=== PATIENT | male | born 1955 ===

== ENCOUNTER 2023-09-05 15:04 | Inpatient (IN) | payer OTHER, SELFPAY ==
[2023-09-05 14:43] VITALS: BP 164/83; PULSE 94; RESP 18; TEMP 37.7; O2SAT 96
[2023-09-05 14:44] VITALS: BP 164/83; PULSE 94; RESP 18; TEMP 37.7; O2SAT 96
--- NOTE | 2023-09-05 15:55 | HPE_ITS ---
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): Status: Acute (6) Weakness of right upper extremity: Status: Acute Assessment and plan: call moreno placed on LS of bed recommend handle for cup switched for LS use recommend BS table to L side of bed (7) Dysphagia: Status: Acute Assessment and plan: regular diet orders placed, preferring soft foods but will request based on p reference PO intake has been extremely low, per hospice records (8) Constipation: Status: Acute Assessment and plan: last BM 4 days ago PRN bowel meds ordered, no pain/discomfort today on exam (9) Generalized weakness: Status: Acute Assessment and plan: bedbound, transfers w/assist (10) Fecal incontinence: Status: Acute Assessment and plan: bedside commode in room (11) Urinary incontinence: Status: Acute Assessment and plan: urinal PRN avoid catheter as able, Jared did agree to one if he needs (12) Sacral decubitus ulcer: Status: Acute Assessment and plan: continue would care w/mepilex dressing changes; last changed 09/05/23 (13) Non-healing non-surgical wound: Status: Acute Assessment and plan: continue would care w/mepilex dressing changes; last changed 09/05/23 (14) Recurrent strokes: Status: Acute (15) Agitation: Status: Acute Assessment and plan: started on risperidone 0.5mg BID two days ago, w/orders for increase to TID PRN haldol and lorazpem PRN orders placed unknown time of last doses History of Present Illness Narrative: Mr. Coleman is a 68 y/o M hospice patient 2/2 cerebral infarctions (07/10/23 and 08/13/23); he will be hospitalized at [facility] for hospice RESPITE care for 5 nights, with planned discharge on Friday09/10/23 Jared is living w/sisters (Deborah and Bernarda), they are not present on today's admission Pain: fentanyl 12mcg/hr patch working well to control pain, denies pain or discomfort PO: appetite reduced, he is not bothered by this. He is not following a specific diet, is tolerating swallowing soft foods best d/t no teeth; he denies concerns w/chewing/swallowing/choking. He would prefer to have regular diet orders in system. He is tolerating drinking fluids well, using straw. Activity: Jared is bedbound at baseline, he does get up from bed daily w/transfer assistance, he reports more observation. RS weakness 2/2 CVA Respiratory: he denies cough, dyspnea, SOB or wheezing, no concerns or complaints; no swelling Bowels: last BM Friday (4 days), he reports this is his normal, he reports they are reduced in volume. he denies abdominal pain, discomfort, cramping, nausea. using bedside commode at home; of note incontinence of BMs noted in previous notes Urine: he continues to make urine w/o issues, using urinal or bedside commode, incontinence previously noted; while he does not require a catheter now, he would be agreeable to one if needed for comfort Skin: wound on R thigh and sacrum, unsure of last dressing change, non- painful/tender/itchy He denies agitation, confusion or anxiety. He feels content and comfortable at this moment - from hospice: he has been experiencing increased agitation, was previously receiving lorazepam TID and Haldol q4h, however was started on risperidone 0.5mg BID Fri, w/orders to increase to TID as needed. at time of admission it is unknown when last dosing of these medications were. 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) (Acute) Weakness of right upper extremity (Acute) Dysphagia (Acute) Dysarthria (Acute) Encounter for hospice care discussion (Acute) Goals of care, counseling/discussion (Acute) Constipation (Acute) Generalized weakness (Acute) Frequent falls (Acute) Fecal incontinence (Acute) Urinary incontinence (Acute) Edema of right foot (Acute) Sacral decubitus ulcer (Acute) Non-healing non-surgical wound (Acute) right thigh Lives alone with help available (Acute) Unintentional weight loss (Acute) Smoker (Acute) History of alcoholism (Acute) last drink July 2023 Recurrent strokes (Acute) 07/10/23 08/13/23 Family History Mother Parkinson's disease Father Hyperlipidemia Heart disease Hypertension Stroke Brother Multiple sclerosis Sister Crohn's disease Sister DJD (degenerative joint disease) Social History Smoking/Tobacco Use Status: Current every day Tobacco: How many years used: 55 Quit status: not considering quitting Counseling given: counseling >3 minutes Smoking risk assessment performed?: Yes Alcohol Intake: former Year quit: 2023 Counseling given: No Details: doesn't drink now because cannot walk from his bed to the fridge Caregiver/Support person: Yes Household members: none Housing: other Number of Children: 0 Communication Needs: Hard of Hearing and Corrective Lenses Education Level: high school Do you need help understanding health information?: Always current occupation: disabled Pets and animals: Yes (2 miniature horses) Pets and animals: horse(s) Sexually active: No Do you think of yourself as: straight/heterosexual Current gender identity: male What is your relationship status?: never How often do you talk on the phone with friends or family?: three or more times per week How often do you get together with friends or relatives?: three or more times per week Panel score (0-1 are the most socially isolated patients): 1 What type of physical activity do you participate in: none and other Details: used to do chores, care for horses, etc. 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 Neighbor/friend Slick also looks in on him. He found Cabrera down on 07/10/23, in the freezing rain, hypothermic. Cabrera refused to go to the hospital. Adamant about wanting to remain in his home until he dies. Doesn't think he is dying immediately. Sisters worried as he is total care now. Two person assist to stand and pivot him to the commode. Needs help with all ADLs. Eating and drinking very little. They let him smoke 2-3 cigarettes per day when they are there, but not when he is alone. Meds Allergies and Home Medications Allergies Allergy/AdvReac Type Severity Reaction Status Date / Time No Known Drug Allergies Allergy Other (See Unverified 09/05/23 14:58 Comment) Home Medications Medication Instructions Recorded Confirmed Type lorazepam 1 mg tablet 1 mg PO .q4h PRN anxiety #6 tabs 08/23/23 09/05/23 Rx morphine concentrate 100 mg/5 mL See Rx Instructions PO Q1H PRN 08/23/23 09/05/23 Rx (20 mg/mL) oral solution pain or dyspnea #30 mL fentanyl 12 mcg/hr transdermal 1 patch transdermal Q72H #5 ea 09/02/23 09/05/23 Rx patch risperidone 0.5 mg tablet 0.5 mg PO BID PRN agitation #30 09/03/23 09/05/23 Rx tabs acetaminophen 650 mg rectal 650 mg DE Q6H fever or mild pain 09/05/23 09/05/23 History suppository bisacodyl 10 mg rectal suppository 10 mg DE PRN If no BM in 3 days 09/05/23 09/05/23 History (Dulcolax (bisacodyl)) haloperidol lactate 2 mg/mL oral 1 mg PO Q4H agitation 09/05/23 09/05/23 History concentrate hyoscyamine sulfate 0.125 mg 0.125 mg sublingual Q4H secretions 09/05/23 09/05/23 History sublingual tablet prochlorperazine maleate 10 mg 10 mg PO Q6H nausea and vomiting 09/05/23 09/05/23 History tablet Exam Const General: cooperative, comfortable and no acute distress Nutritional Appearance: thin Orientation: alert and awake [facility] Head: normal to inspection, normocephalic, atraumatic and no acral cyanosis Ears: hearing grossly normal bilaterally General nose exam: external nose normal Teeth and gingiva: edentulous Chest Chest: normal inspection of the chest Resp Effort & Inspection: normal respiratory effort, able to speak in complete sentences, no audible wheezes and no cough Auscultation: clear to auscultation bilaterally (limited to anterior/lateral exam) Cardio Jugular venous pressure: no JVD Rate: regular rate Rhythm: regular rhythm Pulses: radial pulses present bilaterally 2+ GI Inspection: normal to inspection Palpation: no guarding and nontender Auscultation: normal bowel sounds Skin General skin exam: dry skin Other: RLE: anterior lateral thigh, abrasion wound, mepilex dressing in place, dry scant serous discharge noted on bandage, no bleeding/drainage Sacrum: center, open pressure sore, mepilex dressing in place; no bleeding Neuro General: other (RS weakness RUE/RLE) Speech: abnormal speech garbled and slurred Gait: other (remains in bed) Extrem General: normal to inspection, no pedal edema, no calf tenderness, no cyanosis and muscle atrophy Psych Appearance: grossly normal Speech and Movement: delayed speech and slurred speech Mood: congruent mood Affect: normal affect and indifferent Attitude: cooperative Thought Content: normal Insight: fair Judgment: fair Results Last Vital Signs Temp 99.8 F H 09/05/23 14:44 Pulse 94 H 09/05/23 14:44 Resp 18 09/05/23 14:44 BP 164/83 H 09/05/23 14:44 Pulse Ox 96 09/05/23 14:44 Time Spent Time spent with Patient: <40 minutes (total time spent 75 mins) Time was spent: preparing to see the patient(eg.review tests), obtaining and/or reviewing separately otained hiistory, ordering medications,tests, procedures, referring, communicating with other health plant care worker, counseling the patient and care coordination
[2023-09-05] MEDS: fentaNYL 12 MCG PATCH TD (17:53)
[2023-09-05] MEDS: Nicotine 7 MG/24 HR PATCH TD (19:53)
[2023-09-06 02:16] VITALS: BP 169/78; PULSE 85; RESP 18; TEMP 36.2; O2SAT 98
[2023-09-06 09:20] VITALS: BP 175/114; PULSE 100; RESP 16; TEMP 37.1; O2SAT 89
[2023-09-06] MEDS: risperiDONE 0.5 MG TAB PO (09:24)
[2023-09-06 09:58] VITALS: O2SAT 98
[2023-09-06] MEDS: LORazepam 1 MG TAB PO (17:41)
[2023-09-06 22:50] VITALS: BP 192/109; PULSE 82; RESP 16; TEMP 35.6; O2SAT 96
[2023-09-06 22:51] VITALS: BP 184/102
[2023-09-07] MEDS: risperiDONE 0.5 MG TAB PO ×2 (08:18→21:23)
[2023-09-07 12:10] VITALS: TEMP 36.8
--- NOTE | 2023-09-07 14:04 | CMPROGNOTE_ITS ---
Date of service: 09/07/23 Care Management Progress Note Progress Note Text Progress Note Text: Patient non verbal, per CC no visitors have been to visit will update should that change and CM will engage. Cabrera is a 68 year old admitted to [facility] 09/05/23 for Hospice respite. Cabrera will discharge 09/10/23 home in the care of his sisters Barby and Bernarda. CM following. SDOH(Care Management) Screening Will the Patient Participate in the Screening?: Yes Do you worry about having a steady place to live?: no Problems where you live: no known problems In the past 12 months, have you had to go without electric, gas, oil or water in your home?: no Have you or anyone in your house had to go without enough food to eat?: no Has lack of transportation kept you from medical appointments or from doing things needed for daily living?: no Has anyone in your support network made you feel unsafe for any reason?: no
[2023-09-08] MEDS: Nicotine 7 MG/24 HR PATCH TD (08:14)
[2023-09-08] MEDS: risperiDONE 0.5 MG TAB PO ×2 (08:14→20:29)
--- NOTE | 2023-09-08 08:37 | W.PM.PROGNOT ---
Date of Service Date of service: 09/08/23 Time of Service: 08:37 Assessment and Plan Assessment and plan (1) Hospice care patient: Status: Chronic (2) Agitation: Status: Acute (3) History of alcoholism: Status: Acute (4) Recurrent strokes: Status: Acute Assessment and plan: Overall Jared is stable. Per staff observation, would recommend that he receive the Ativan at night rather than the Risperdal as it seem like it helps him to relax better. Continue on respite care. I will be on hospice tomorrow, and on Friday Kaylyn Khan NP will be resuming care Subjective Subjective Interval history since last seen: Hospice pt - respite care Staff states that he responded much better to the Ativan any due to the Risperdal. He had a very quiet night 2 nights ago and last night he was a bit restless restless Exam Narrative Exam Narrative: Jared states that his pain is better. He feels very sleepy. He cannot tell me where he is. He thinks it is some sort of a building. He does not feel any specific problems. His heart was regular. There was a systolic murmur. Lungs?cooperative to a point but not real good deep breath. No rales to the extent that he cooperated. Objective Last Vital Signs Temp 98.2 F 09/07/23 12:10 Pulse 82 09/06/23 22:50 Resp 16 09/06/23 22:50 BP 184/102 H 09/06/23 22:51 Pulse Ox 96 09/06/23 22:50 Time Spent with Patient Time Spent with Patient: <25 minutes Time was spent: preparing to see the patient(eg.review tests), obtaining and/or reviewing separately otained hiistory and care coordination
--- NOTE | 2023-09-08 12:29 | PDOC.CMPRO ---
Care Management Progress Note Progress Note Text Progress Note Text: Patient non verbal, per CC no visitors have been to visit will update should that change and CM will engage. Lala Caceres from [facility] updated that Cabrera was not agreeable to a senior living so when discharged will be return home. Cabrera is a 68 year old admitted to [facility] 09/05/23 for Hospice respite. Cabrera will discharge 09/10/23 home in the care of his sisters Barby and Bernarda. CM following. SDOH(Care Management) Screening Will the Patient Participate in the Screening?: Yes Do you worry about having a steady place to live?: no Problems where you live: no known problems In the past 12 months, have you had to go without electric, gas, oil or water in your home?: no Have you or anyone in your house had to go without enough food to eat?: no Has lack of transportation kept you from medical appointments or from doing things needed for daily living?: no Has anyone in your support network made you feel unsafe for any reason?: no
[2023-09-08] MEDS: fentaNYL 12 MCG PATCH TD (17:29)
[2023-09-08] MEDS: Haloperidol 1 MG TAB PO (20:30)
[2023-09-09] MEDS: Patch Removal 1 EACH TP (06:30)
[2023-09-09] MEDS: fentaNYL 12 MCG PATCH TD (08:38)
[2023-09-09] MEDS: risperiDONE 0.5 MG TAB PO ×2 (08:39→20:04)
[2023-09-09] MEDS: Scopolamine 1 MG/3 DAYS PATCH TD (11:01)
[2023-09-09] MEDS: LORazepam 2 MG/ML VIAL IV/SC (17:56)
--- NOTE | 2023-09-10 08:37 | W.PM.DS.N ---
Date of service: 09/10/23 Time of Service: 08:20 DS: Diagnosis Discharge Diagnosis (1) Hospice care patient: Status: Chronic Asessment and Plan: Cabrera will be discharged today at 10am via [place] to [facility] w/Lala Caceres after his 5 day day at [facility] on hospice respite (2) Agitation: Status: Acute Asessment and Plan: controlled; continue risperidone 0.5mg BID last lorazepam 1mg 09/08, only needed intermittent no Haldol since admit (3) History of alcoholism: Status: Acute (4) Recurrent strokes: Status: Acute Asessment and Plan: w/RS weakness Discharge Plan Disposition Patient Disposition: Home W/Hospice Services Condition: Stable Discharge Details Reason For Visit: Cerebral infarction Admit Date/Time: 09/05/23 15:04 Admit Provider: Becca Stanley Attending Provider: Becca Stanley Hospital Course Hospital Course: Jared was admitted to [facility] on hospice respite on 09/05/23 he remained comfortable w/limited agitation throughout his stay, he only required limited PRN doses of lorazepam, has continued risperidone 0.5mg BID he has had limited PO intake, last moved bowels on 09/05, small and soft formed pain: remained controlled w/fentanyl 12mcg/hr patch, has required no PRN doses of morphine skin: sacral pressure sore stage 3 wound and R thigh abraison wound last changed 09/07; bilateral heels w/pressure sore stage 1, heel pags placed Jared will be discharged home today to [facility] home w/Lala Caceres, coordinated through hospice Home Meds and New Rx's Prescriptions: Continued morphine concentrate 100 mg/5 mL (20 mg/mL) solution See Rx Instructions PO Q1H PRN MDD 120 mg Qty: 30 0RF Rx Instructions: 0.25-1.0 ml orally every 1 hour, as needed; HOSPICE lorazepam 1 mg tablet 1 mg PO .q4h PRN (Reason: anxiety) Qty: 6 5RF Rx Instructions: hospice fentanyl 12 mcg/hr patch 72 hour 1 patch transdermal Q72H MDD 24 mcg Qty: 5 0RF Rx Instructions: hospice risperidone 0.5 mg tablet 0.5 mg PO BID PRN (Reason: agitation) Qty: 30 0RF Rx Instructions: hospice patient start with twice daily dosing, may increase to three times daily as needed bisacodyl [Dulcolax (bisacodyl)] 10 mg suppository 10 mg AL PRN haloperidol lactate 2 mg/mL concentrate 1 mg PO Q4H hyoscyamine sulfate 0.125 mg tablet, sublingual 0.125 mg sublingual Q4H prochlorperazine maleate 10 mg tablet 10 mg PO Q6H acetaminophen 650 mg suppository 650 mg AL Q6H Discharge Instructions Activity:: w/assistance Equipment/Supplies:: DME at [facility] home Diet:: As Tolerated Discharge Orders Discharge Orders: Discharge Order (Routine); Ordered 09/10/23 Ordered By: Kaylyn Khan DS: Summary Time Spent with Patient providing and/or coordinating discharge services: Less than 30 minutes Status at Discharge Functional status at discharge: bed bound Overall status at discharge: patient is back to baseline Mental Status: other Speech and Movement: delayed speech and slurred speech Mood: congruent mood and other Affect: normal affect and indifferent Quality:SDOH Health Related Social Needs: No Data to Display Exam Const General: cooperative, comfortable and no acute distress Nutritional Appearance: cachectic and thin Orientation: alert and awake HENMT Head: normal to inspection, normocephalic, atraumatic and no acral cyanosis Ears: hearing grossly normal bilaterally General nose exam: external nose normal Teeth and gingiva: edentulous Chest Chest: normal inspection of the chest (fentanyl 12mcg/hr TD on R anterior chest) Resp Effort & Inspection: normal respiratory effort, able to speak in complete sentences, no audible wheezes and cough (x3 during visit) Quality of cough: dry Auscultation: clear to auscultation bilaterally (limited to anterior/lateral exam) Cardio Jugular venous pressure: no JVD Rate: regular rate Rhythm: regular rhythm Pulses: radial pulses present bilaterally 2+ GI Inspection: normal to inspection Palpation: no guarding and nontender Auscultation: hypoactive bowel sounds Skin General skin exam: dry skin Other: bilateral heel pads in place did not conduct full skin exam Neuro General: other (RS weakness RUE/RLE) Speech: abnormal speech garbled and slurred Gait: other (remains in bed) Extrem General: normal to inspection, no pedal edema, no calf tenderness, no cyanosis and muscle atrophy Psych Appearance: grossly normal Mental Status: other Speech and Movement: delayed speech and slurred speech Mood: congruent mood and other Affect: normal affect and indifferent Attitude: cooperative Thought Content: normal Insight: limited Judgment: limited DS: Data Vitals/I&O Vitals and I&O: Vital Signs Temperature 98.2 F 09/07/23 12:10 Temperature Source Tympanic 09/07/23 12:10 Pulse 82 09/06/23 22:50 Pulse Rhythm Regular 09/07/23 21:20 Respiratory Rate 16 09/06/23 22:50 Respiratory Effort Normal, Non-Labored 09/07/23 21:20 Respiratory Depth Normal 09/07/23 21:20 Respiratory Pattern Normal 09/07/23 21:20 Blood Pressure 184/102 H 09/06/23 22:51 Pulse Oximetry 96 09/06/23 22:50 Oxygen Delivery Method Room Air 09/06/23 22:50 Oxygen Flow Rate 0 09/06/23 22:50 Pain Level 0 09/08/23 16:35 Intake & Output 09/09/23 09/09/23 09/10/23 11:59 23:59 11:59 Intake Total 200 / 200 Balance 200 / 200 Intake: Oral 200 / 200 Other: Urine Color Yellow Straw Yellow Urine Appearance Clear Clear Urine Odor Strong Comment Dry. 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) (Acute) Weakness of right upper extremity (Acute) Dysphagia (Acute) Dysarthria (Acute) Encounter for hospice care discussion (Acute) Goals of care, counseling/discussion (Acute) Constipation (Acute) Generalized weakness (Acute) Frequent falls (Acute) Fecal incontinence (Acute) Urinary incontinence (Acute) Edema of right foot (Acute) Sacral decubitus ulcer (Acute) Non-healing non-surgical wound (Acute) right thigh Lives alone with help available (Acute) Unintentional weight loss (Acute) Smoker (Acute) History of alcoholism (Acute) last drink July 2023 Recurrent strokes (Acute) 07/10/23 08/13/23 Family History Mother Parkinson's disease Father Hyperlipidemia Heart disease Hypertension Stroke Brother Multiple sclerosis Sister Crohn's disease Sister DJD (degenerative joint disease) Social History Smoking/Tobacco Use Status: Current every day Tobacco: How many years used: 55 Quit status: not considering quitting Counseling given: counseling >3 minutes Smoking risk assessment performed?: Yes Alcohol Intake: former Year quit: 2023 Counseling given: No Details: doesn't drink now because cannot walk from his bed to the fridge Caregiver/Support person: Yes Household members: none Housing: other Number of Children: 0 Communication Needs: Hard of Hearing and Corrective Lenses Education Level: high school Do you need help understanding health information?: Always current occupation: disabled Pets and animals: Yes (2 miniature horses) Pets and animals: horse(s) Sexually active: No Do you think of yourself as: straight/heterosexual Current gender identity: male What is your relationship status?: never How often do you talk on the phone with friends or family?: three or more times per week How often do you get together with friends or relatives?: three or more times per week Panel score (0-1 are the most socially isolated patients): 1 What type of physical activity do you participate in: none and other Details: used to do chores, care for horses, etc. 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 Neighbor/friend Slick also looks in on him. He found Cabrera down on 07/10/23, in the freezing rain, hypothermic. Cabrera refused to go to the hospital. Adamant about wanting to remain in his home until he dies. Doesn't think he is dying immediately. Sisters worried as he is total care now. Two person assist to stand and pivot him to the commode. Needs help with all ADLs. Eating and drinking very little. They let him smoke 2-3 cigarettes per day when they are there, but not when he is alone. Time Spent with Patient Time Spent with Patient: 45-69 minutes Time was spent: preparing to see the patient(eg.review tests), obtaining and/or reviewing separately otained hiistory, referring, communicating with other health health careers instructor, counseling the patient and care coordination
--- NOTE | 2023-09-10 09:29 | CMDISCH_ITS ---
Date of service: 09/10/23 Time of Service: 09:29 LACE Index Scoring Tool Questions: Length of Stay (in days): 4 - 6 Was the patient admitted via the E.D.?: No Comorbidities: Cerebrovascular Disease (CVA) E.D. Visits: 0 Answers: Total Score: 5 Risk of Readmission: Low Risk Care Management Discharge Plan Reason for Hospitalization: Cerebral Infarction Discharge Plan: Jared is discharging to a Community Shelter overseen by Domenica Montgomery with resumption of Hospice services. [facility] arrangements were coordinated by Hospice. He will transport via EMS. Cabrera will follow up with Hospice providers and his discharge plan of care as instructed. Patient/Family Education Needs: Review discharge instructions, limitations, medications and plan to follow up with community providers. Discuss ask me three. Services Needed at Discharge: Home Health Care Services (Resume Hospice services) and Transportation ([facility], Coordinated by Hospice.) SDOH Health Related Social Needs: No Data to Display
[2023-09-10] MEDS: risperiDONE 0.5 MG TAB PO (09:35)
--- NOTE | 2023-09-10 10:37 | NUR.NOTE ---
Nursing Note: [facility]. denies pain.
== END 2023-09-10 10:27 | disposition hospice, home (50) | DRG 56 ==
PROVIDERS: Admitting Provider Family Medicine; Visit Provider Family Medicine
DX: I69.351 Hemiplegia and hemiparesis following cerebral infarction affecting right dominant side (principal); L89.153 Pressure ulcer of sacral region, stage 3; Z51.5 Encounter for palliative care; Z75.5 Holiday relief care; Z74.01 Bed confinement status; R29.6 Repeated falls; F17.210 Nicotine dependence, cigarettes, uncomplicated; S70.311A Abrasion, right thigh, initial encounter; X58.XXXA Exposure to other specified factors, initial encounter; Z66 Do not resuscitate; R13.10 Dysphagia, unspecified; K59.00 Constipation, unspecified; R15.9 Full incontinence of feces; I69.392 Facial weakness following cerebral infarction; R32 Unspecified urinary incontinence; R45.1 Restlessness and agitation; F10.21 Alcohol dependence, in remission
CPT/HCPCS: 00123; J2060; J3490